=== PATIENT | female | born 1985 | race Caucasian/White ===

== ENCOUNTER → 2016-05-21 | Day surgery (SDC) | payer OTHER ==
[~2016-05-21] MED LIST: NO MEDICATIONS
--- NOTE | ~2016-05-21 | OR ---
Unit #: [id number] #: [id number] Patient: CLINT GLASS [id number] [address] [place], [place] [address] [id number] O MR#: [id number] NAME: CLINT GLASS ROOM: Date of Procedure: 04/20/2016 Admission Date: 05/21/2016 Surgeon: Ady Courtney M.D. : 1985 Attending Physician: Ady Courtney M.D. Referring Physician: Ady Courtney M.D. OPERATIVE REPORT PREOPERATIVE DIAGNOSIS Enlarging lipoma of forehead. POSTOPERATIVE DIAGNOSIS Enlarging lipoma of forehead. PROCEDURE PERFORMED Excision of lipoma of forehead 1 cm with layered closure. ANESTHESIA General LMA anesthesia. FINDINGS The lesion was consistent with a lipoma. SPECIMENS Sent to pathology. COMPLICATIONS None apparent. CONDITION The patient tolerated the procedure well. INDICATIONS FOR PROCEDURE The patient is a 30-year-old white female, who has a subcutaneous mass of the forehead. She presents at this time for excision for pathologic diagnosis and treatment. DESCRIPTION OF PROCEDURE After obtaining informed consent as well as receiving preoperative antibiotics, the patient was brought to the operating room and after adequate general LMA anesthesia was obtained, had her forehead prepped and draped in a sterile fashion. A small incision was made in one of the skin folds and was taken down through the skin with a knife and through the subdermal tissues with electrocautery. Dissection was taken down to the level of the lesion. It was consistent with a lipoma. It was dissected free from the surrounding structures with blunt dissection and electrocautery with good hemostasis. It was sent to pathology. The wound was irrigated and hemostasis was obtained with the Bovie. The deep Unit #: [id number] #: [id number] Patient: CLINT GLASS tissues were reapproximated with interrupted 4-0 Vicryl suture. The skin was closed with 5-0 Monocryl. An occlusive dressing of Mastisol and Steri-Strips was applied. Needle counts, sponge counts, and instrument counts were all correct as reported by the scrub nurse x2. The patient went from the operating room to the recovery room in stable condition. Dictated by... Ady Lenora Stratton TD: 05/21/2016 22:03 JOB #: [id number] CC: [facility] OPERATIVE REPORT X Ady Courtney MD PROCEDURE OPERATIVE NOTE
== END | disposition home or self-care (01) ==
LOC: CSUR 11:41
DX: D17.0 Benign lipomatous neoplasm of skin and subcutaneous tissue of head, face and neck (principal); F17.210 Nicotine dependence, cigarettes, uncomplicated; Z88.1 Allergy status to other antibiotic agents; Z98.51 Tubal ligation status
CPT/HCPCS: 84703; 88304; J0690; J1885; J2250; J2405; J3010